=== PATIENT | male | born 1995 | race Hispanic/Latino ===

== ENCOUNTER 2022-02-25 16:21 | Emergency (ER) | payer MEDICAID, OTHER ==
[~2022-02-25] VITALS: Ht 170.2 cm; Wt 79.8 kg
[2022-02-25] MEDS ORDERED: ACETAMINOPHEN 500 MG TABLET PO ONE (17:00)
[2022-02-25] MEDS ORDERED: IBUPROFEN 800 MG TAB PO ONE (17:00)
[2022-02-25] MEDS ORDERED: GUAIFENESIN-DM 200/20 MG 10 ML PO ONE (17:00)
[2022-02-25] MEDS ORDERED: D-ME1POW16 PO (17:01)
[2022-02-25 17:19] VITALS: BP 123/81
== END 2022-02-25 17:23 | disposition home or self-care (01) ==
LOC: EDH 16:21
DX: U07.1 COVID-19 (principal); J06.9 Acute upper respiratory infection, unspecified
CPT/HCPCS: 87635; 87804 ×2; 87880; 99284; C9803